=== PATIENT | male | born 1940 | race Caucasian/White ===

== ENCOUNTER 2024-01-02 18:34 | Emergency (ER) | payer MEDICARE ==
[~2024-01-02] VITALS: Ht 162.6 cm; Wt 72.8 kg
[2024-01-02 18:47] VITALS: O2SAT 96
[2024-01-02 20:14] LABS: BASOPHILS % 0.6 % (0.0-2.0); EOSINOPHILS % 6.5 % (0.0-5.0); HEMATOCRIT. 38.5 % (42.0-52.0); LYMPHOCYTES % 24.1 % (20.0-50.0); MEAN CORPUSCULAR HEMOGLOBIN 31.5 pg (28.0-32.0); MEAN CORPUSCULAR HGB CONC 33.8 g/dL (31.0-37.0); MEAN CORPUSCULAR VOLUME 93.2 fL (80.0-94.0); MEAN PLATELET VOLUME 9.8 fl (7.4-10.4); NEUTROPHILS % 59.8 % (40.0-76.0); PLATELET 226 x1000/uL (130-400); RED BLOOD CELL COUNT 4.13 mill/uL (4.7-6.1); RED CELL DISTRIBUTION WIDTH 13.9 % (11.6-14.6); WHITE BLOOD COUNT 7.3 x1000/uL (4.5-11.0)
[2024-01-02 20:21] LABS: CHLORIDE 106 mEq/L (98-107); POTASSIUM 4.4 mEq/L (3.5-5.1); SODIUM 137 mEq/L (136-145)
[2024-01-02 20:22] LABS: CALCIUM 9.2 mg/dL (8.7-10.4); CARBON DIOXIDE 27 mEq/L (21-32)
[2024-01-02 20:27] LABS: GLUCOSE 305 mg/dL (70-105); UREA NITROGEN BLOOD 24 mg/dL (9-23)
[2024-01-02 20:28] LABS: TROPONIN I HIGH SENSITIVITY 10 ng/L (3.0-53)
[2024-01-02] MEDS ORDERED: BENZ200C52 MT (20:54)
[2024-01-02 21:28] VITALS: BP 133/69; PULSE 80; RESP 20; TEMP 37.00296; O2SAT 98
== END 2024-01-02 21:29 | disposition home or self-care (01) ==
LOC: ER 18:34
DX: R05.1 Acute cough (principal); E11.9 Type 2 diabetes mellitus without complications; I10 Essential (primary) hypertension
CPT/HCPCS: 36415; 71045; 80048; 83880; 84484; 85025; 93005; 99285